=== PATIENT | female | born 1960 | race Caucasian/White ===

== ENCOUNTER 2016-11-17 17:47 | Emergency (ER) | payer MEDICAID ==
[~2016-11-17] VITALS: Ht 161.3 cm; Wt 89.5 kg
[2016-11-17 18:08] VITALS: BP 140/79; PULSE 89; RESP 16; O2SAT 98
[2016-11-17] MEDS ORDERED: 0.9% Sodium Chloride 1,000 ML IV ONE (19:17)
[2016-11-17] MEDS ORDERED: Ondansetron 2 mg/mL 2 mL Inj IVPUSH ONE ×2 (19:20→22:15)
--- NOTE | 2016-11-17 19:28 | ED.REPORT ---
HPI-Abd Pain F 40 and Over Date of Service Nov 17, 2016 ED Provider: John Mohr PA-C Jennifer is a 56-year-old female with a history of high blood pressure, hyperlipidemia, bipolar disorder, hypothyroid, chronic fatigue presenting to the emergency department with a chief complaint of abdominal and low back pain. Patient reports a 2 week history of diffuse crampy abdominal pain, mid back pain , A diarrhea without blood 6 per day, vomiting without blood 3 per day. Patient states she cannot keep anything down. Patient additionally reports alternating fevers and chills which are at baseline for her due to her chronic fatigue. Patient admits a great deal of personal stress in her life lately including the of her oldest child, the end of her marriage. She reports increased consumption of marijuana in recent days. She describes her back pain as a band across her mid back. She recalls no specific trauma. Denies bowel/bladder dysfunction and saddle anesthesia. Denies fever, DM, HIV, organ transplant, immunosuppression, recent surgery, recent infection, history of back surgery, surgical implants and IV drug use.Denies numbness, weakness or pain in lower extremity. Denies urinary symptoms, chest pain, cough, wheeze, shortness of breath. Nursing Notes Stated Complaint: BACK PAIN,DIARRHEA,ABDOMINAL PAIN Chief Complaint: Female Abdominal Pain Nursing Notes Reviewed: Yes Allergies: Coded Allergies: Sulfa (Sulfonamide Antibiotics) (Verified Allergy, Severe, hives, itching , 11/17/16) General Time Seen by MD: 19:01 Chief Complaint Other (back pain, diarrhea, abdominal pain) Sudden in Onset?: No Past Medical History High blood pressure, hyperlipidemia, bipolar disorder, hypothyroidism. Review of Systems Negative unless stated otherwise in history of present illness Physical Exam General: Well appearing, well developed, well nourished, no acute distress. Cushingoid appearance with buffalo hump, round face, obese abdomen, thin legs. Head: Atraumatic, normocephalic. Eyes: No scleral icterus or injection. No discharge. Vision grossly intact. ENT: Voice clear, hearing grossly intact. Respiratory: Regular rate and rhythm. Breath sounds present, clear to auscultation and equal bilaterally. No respiratory distress. No increased work of breathing, speaks in complete sentences. Cardiovascular: Regular rate and rhythm, without murmur, gallop or rub. No pedal edema. DP pulse 2+ Gastrointestinal: Protuberant abdomen diffusely tender most prominently in the left lower quadrant without guarding or rebound. Bowel sounds normoactive. Skin: Warm and dry. Back: Normal to inspection, nontender. Minimal left CVA tenderness to percussion. Neurological: Normal gait, toe walk, heel walk, Romberg. Patellar and Achilles reflexes present and equal B/L. Sensation to light touch intact at medial leg, dorsal foot and lateral foot B/L. Psychological: Alert and oriented. Speech appropriate, linear and logical. Behavior appropriate. Vital Signs Vital Signs (First) Date Time Temp Pulse Resp B/P Pulse Ox O2 Delivery O2 Flow Rate FiO2 11/17/16 18:08 37.1 89 16 140/79 98 Room Air Mildly elevated blood pressure Interpretation & Diagnostics Lab Results Interpretation Result Diagram: 11/17/16194411/17/161944 Test 11/17/16 11:45 11/17/16 19:45 11/17/16 19:56 Hold Baron Top Tube Received (Received) White Blood Count 11.6th/mm3 (3.8-10.1) Red Blood Count 4.54mil/mm3 (3.90-5.20) Hemoglobin 13.8g/dL (12.0-15.6) Hematocrit 37.9% (35.0-46.0) Mean Corpuscular Volume 83.5fL (81-100) Mean Corpuscular Hemoglobin 30.4pg (27.0-35.0) Mean Corpuscular Hemoglobin Concent 36.4% (32.0-37.0) Red Cell Distribution Width 13.1% (12.3-15.4) Platelet Count 217bil/L (150-400) Neutrophils (%) (Auto) 53.4% (40-74) Lymphocytes (%) (Auto) 40.3% (14-46) Monocytes (%) (Auto) 5.7% (4-12) Eosinophils (%) (Auto) 0.2% (0-5) Basophils (%) (Auto) 0.2% (0-3) Sodium Level 140mEq/L (134-144) Potassium Level 3.5mEq/L (3.5-5.2) Chloride Level 105mEq/L (97-108) Carbon Dioxide Level 22mmol/L (18-29) Blood Urea Nitrogen 10mg/dL (6-24) Creatinine 0.54mg/dL (0.57-1.00) Estimat Glomerular Filtration Rate 167mL/min (>59) Glucose Level 130mg/dL (60-99) Calcium Level 10.5mg/dL (8.5-10.1) Magnesium Level 1.5mg/dL (1.6-2.6) Total Bilirubin 0.7mg/dL (0.0-1.2) Aspartate Amino Transf (AST/SGOT) 18U/L (0-50) Alanine Aminotransferase (ALT/SGPT) 31U/L (0-32) Alkaline Phosphatase 85U/L (25-150) Total Protein 6.4g/dL (6.4-8.4) Albumin 4.2g/dL (3.4-5.0) Lipase 13U/L (13-60) Thyroid Stimulating Hormone (TSH) 11.630uIU/mL (0.450-4.500) Urine Color Yellow (YELLOW) Urine Appearance Hazy (CLEAR,HAZY) Urine pH 7.0 (5.0-8.0) Urine Specific Thornton 1.010 (1.003-1.035) Urine Protein Negativemg/dL (NEG,TRACE) Urine Glucose (UA) Negativemg/dL (NEGATIVE) Urine Ketones Negativemg/dL (NEGATIVE) Urine Occult Blood Negative (NEGATIVE) Urine Nitrite Negative (NEGATIVE) Urine Bilirubin Negative (NEGATIVE) Urine Urobilinogen Normalmg/dL (NORMAL) Urine Leukocyte Esterase Negative (NEGATIVE) Urine RBC 0-2/hpf (0-2) Urine WBC 0-5/hpf (0-5) Urine Epithelial Cells Moderate/hpf (NONE-MOD) Urine Crystals None seen (NONE SEEN) Urine Bacteria Moderate/hpf (NONE-FEW) Urine Hyaline Casts None/lpf (NONE) Urine Granular Casts None seen (NONE SEEN) Urine Waxy Casts None seen (NONE SEEN) Urine Red Blood Cell Casts None seen (NONE SEEN) Urine White Blood Cell Casts None seen (NONE SEEN) Urine Mucus Present (None Seen) Urine Trichomonas None seen (NONE SEEN) Urine Yeast None (NONE SEEN) Urinalysis Comment None Urine Culture Reflexed Indicated Re-Eval/Medical Decision Med Decision/Clinical Course 56-year-old female with a history of high blood pressure, hyperlipidemia, bipolar disorder, hypothyroid, chronic fatigue syndrome presents to emergency Department chief complaint of nausea, vomiting, diarrhea, low back pain and abdominal pain for the last 2 weeks. Associated with significant personal stress. Back pain is without red flags Physical examination reveals a cushingoid appearance obese abdomen, dorsal fat pad, round face. Abdomen is diffusely tender, most prominently in the left lower quadrant. Lower back is normal to inspection and nontender. Neurological examination is normal. Vitals are normal. Treatment is initiated with ketorolac, ondansetron, normal saline. CBC, CMP, lipase, TSH sent. Stool sample was requested. CBC reveals mild leukocytosis at 11.6. CMP reveals slightly high calcium at 10.5 , slightly low magnesium at 1.5 significantly elevated TSH 11.63. Lipase is normal. Urinalysis hazy appearance moderate urine bacteria, mucus present in the context of moderate epithelial cells. Negative for RBCs, WBCs, nitrate, leukocyte esterase. Patient reports moderate improvement in symptoms after treatment. I discussed the case with who assumes care at shift change. Discharge & Departure Shift Change Sign-Out Patient Care Transferred: Yes (Dr pagan) Discussed Complaint(s): Yes Laboratory Evaluation: Lab evaluation discussed Response to Therapy: Improved Primary Impression: Diarrhea Additional Impressions: Vomiting Abdominal pain Back pain Referrals: Carlos Hair DO (PCP) EDSupervising Provider for APC: Antione Pagan MD, Seth PA-C Nov 17, 2016 19:28
[2016-11-17 20:04] LABS: BASOPHILS % (AUTO) 0.2 % (0-3); EOSINOPHILS % (AUTO) 0.2 % (0-5); MONOCYTES % (AUTO) 5.7 % (4-12); Mean Corpuscular Hemoglobin 30.4 pg (27.0-35.0); Mean Corpuscular Volume 83.5 fL (81-100); NEUTROPHILS % (AUTO) 53.4 % (40-74); Platelet Count 217 bil/L (150-400)
[2016-11-17 20:17] LABS: APPEARANCE,URINE HAZY (CLEAR,HAZY); COLOR,URINE YELLOW (YELLOW); OCCULT BLOOD,URINE NEGATIVE (NEGATIVE); UROBILINOGEN,URINE NORMAL (NORMAL)
[2016-11-17 20:30] LABS: Magnesium 1.5 mg/dL (1.6-2.6)
[2016-11-17] MEDS ORDERED: _Ondansetron ODT 4 mg Tablet PO PRN (22:15)
[2016-11-17] MEDS ORDERED: ONDA8TAB10 PO (22:24)
[2016-11-17 22:52] VITALS: BP 138/76; PULSE 82; RESP 16; O2SAT 99
== END 2016-11-17 22:48 | disposition home or self-care (01) ==
LOC: SED 17:47
DX: R19.7 Diarrhea, unspecified (principal); R11.2 Nausea with vomiting, unspecified; R10.84 Generalized abdominal pain; M54.5 Low back pain; F43.9 Reaction to severe stress, unspecified; R50.9 Fever, unspecified; F19.90 Other psychoactive substance use, unspecified, uncomplicated; I10 Essential (primary) hypertension; E78.5 Hyperlipidemia, unspecified; F31.9 Bipolar disorder, unspecified; E03.9 Hypothyroidism, unspecified; Z88.2 Allergy status to sulfonamides
CPT/HCPCS: 36415; 80053; 81000; 82948; 83690; 83735; 84443; 85025; 87086; 87088; 96361; 96374; 96375; 96376; 99285; J1885; J2405; J7030